=== PATIENT | female | born 1985 ===

== ENCOUNTER 2020-10-17 16:04 | Outpatient (CLI) | payer MEDICAID ==
[2020-10-17 16:41] VITALS: BP 108/71
--- NOTE | 2020-10-17 16:41 | SLEEP CARE CONSULTATION ---
Information from patient questionnaire entered by Namrata Dennis. I have reviewed and concur with the information entered by Namrata Dennis. This document represents the service I personally performed and the decisions made by me, Valery Beavers ARNP. History of Present Illness Service Date and Time: 10/17/2020 1604 Reason for Visit: New patient Chief Complaint: reports: Unrefreshed sleep, Snoring, Excessive daytime sleepiness, Observed pauses in breathing, Fatigue, Frequent awakenings at night Date of Onset: As long as I can remember Usual bedtime: Varies Time it takes to fall asleep: 15 minutes or so, varies Snores at night: Yes Observed to quit breathing while asleep: Yes Sleeps alone due to snoring: No (No spouse) Number of times waking at night: 2-3 Reasons for waking at night: reports: Bathroom, Other (Unknown reason) Toss, Turn, or Twitch while sleeping: Yes Recalls having dreams: Yes Usually gets out of bed at: Varies Feels refreshed in the morning: No Morning headache: Yes (Few hours; 4-5 days a week) Sleepy or fatigued during the day: Yes Ever fallen asleep while driving: No (some drowsy driving but no accidents) Takes day naps: Yes (1-2 days a week) Dreams during day naps: Yes Prior sleep studies: No Additional HPI information: I had the pleasure of seeing ALE PRIDE today regarding the possibility of her having a sleep disorder. Her current complaints are excessive daytime sleepiness, fatigue, frequent night awakenings, observed pauses in breathing, snoring and unrefreshed sleep. Her mother thinks she has apnea. She has heard her stop breathing and snores very loudly. Lately she is waking up with severe headaches. She sometimes has difficulty going to sleep. She wakes up not feeling rested and sometimes she will fall back to sleep. She sometimes will sleep up to 14 hours and still not feel rested. Both of her parents have sleep apnea. - Parasomnia Symptoms Ever been unable to move upon waking from sleep: Yes Walks in sleep: No Talks in sleep: No Ever acted out dreams in sleep: No (once she screamed in her dream) Ever felt weak in the knees when startled or emotional: Yes Bothered by creepy, crawly, restless sensations in legs: No Problems with memory or concentration: Yes (mostly concentration) Subjective Initial [place] Sleepiness Scale score: 12 (in 2020) Past Medical History Past Medical History: reports: Anxiety, Depression, Other (Bipolar) Social History The patient's occupation is disabled. Patient is single and lives in [place]. Have you smoked in the past 12 months: No Alcohol use: Yes Alcohol amount and frequency: 1-2 glasses, not often--1-2 a month Caffeine use: Yes Caffeine amount and frequency: 5-10 a day, 5-10 a day Family History Family history of sleep disordered breathing: Yes Family Hx Sleep Apnea: Mother: Sleep apnea - Treated, Father: Sleep apnea - Treated Allergies and Home Medications Drug allergies reviewed: Yes (NKDA) Home medication list reviewed: Yes Allergy and home medication list: Lamotrigene Lexapro Remeron Risperidone Review of Systems Cardiovascular: denies: high blood pressure Gastrointestinal: reports: heartburn (occasional) Neurological: reports: headaches Psychiatric: reports: anxiety, depression, mood disorder Ear/Nose/Throat: reports: dry mouth/throat. denies: tonsillectomy, wisdom teeth removed Immunologic: denies: allergies to food or environment Physical Exam Blood Pressure: 108/71 Cuff size: wrist Heart Rate: 92 O2 Saturation: 98 Height: 5 ft 7 in Weight: 319 lb Body Mass Index: 49.9 BMI Classification: Morbidly Obese Mouth and throat: narrow oropharynx Hard palate: normal Uvula visualization: 25% Mallampati Class III Tongue: enlarged in size with teeth vazquez on lateral edges Tonsils: 1+ Heart: regular rate and rhythm Lungs: clear bilaterally Impression and Plan 1. Suspected Obstructive Sleep Apnea-Hypopnea Syndrome, as suggested by a history of loud and irregular snoring, observed cessation of breath while asleep, morning headache, frequent awakening during the night, unrefreshed sleep, cognitive impairment, and excessive daytime sleepiness. Narrow oropharynx and obesity are common predisposing factors for obstructive sleep apnea-hypopnea syndrome. I recommend proceeding to polysomnography to confirm the diagnosis and to assess severity. If the patient has significant sleep disordered breathing, a manual CPAP titration study will also be performed to find the optimal treatment pressure. I informed the patient of what the sleep studies involve and after some discussion, obtained agreement to proceed. The pathophysiology of obstructive sleep apnea-hypopnea syndrome was discussed with the patient and health risks of cardiovascular and cerebrovascular disease if not treated. Risks of drowsy driving discussed in detail and patient advised to avoid long distance driving and to lathe puller at the first sign of drowsiness. Patient agreed to plan. * Schedule polysomnography +- manual CPAP titration study and return in 1-2 weeks after the study to discuss result and initiate therapy. * Avoid long distance driving or driving when feeling sleepy. * Avoid alcohol, sedative and muscle relaxant around bedtime. * Attempt to lose weight. * Review instructions provided by trained office staff on how to prepare for the sleep study. * Return for follow-up after sleep study completed. Counseling Topics: Weight loss health impact Visit Type: In Office Time Spent with Patient (minutes): 31 Provider Statement: I spent 100% of the Face to Face Visit with the patient with greater than 50% spent counseling the patient and coordination of care.
== END 2020-10-17 16:05 | disposition home or self-care (01) ==
LOC: SC 16:04
PROVIDERS: ATTEND Nurse Practitioner Family
DX: G47.10 Hypersomnia, unspecified (principal); R06.83 Snoring; R51.9 Headache, unspecified; R06.81 Apnea, not elsewhere classified; G47.8 Other sleep disorders; R41.89 Other symptoms and signs involving cognitive functions and awareness; E66.01 Morbid (severe) obesity due to excess calories; Z68.42 Body mass index [BMI] 45.0-49.9, adult
CPT/HCPCS: 99203; 99212

== ENCOUNTER 2020-11-08 21:28 | Outpatient (CLI) | payer MEDICAID | END 2020-11-08 21:29 | disposition home or self-care (01) | LOC: SC 21:28 | PROVIDERS: ATTEND Nurse Practitioner Family | DX: G47.33 Obstructive sleep apnea (adult) (pediatric) (principal); E66.09 Other obesity due to excess calories; Z68.43 Body mass index [BMI] 50.0-59.9, adult | CPT/HCPCS: 95810 ==

== ENCOUNTER 2020-11-28 16:15 | Outpatient (CLI) | payer MEDICAID ==
--- NOTE | 2020-11-28 16:59 | SLEEP CARE CONSULTATION ---
Information from patient questionnaire entered by Daysi Trinidad. I have reviewed and concur with the information entered by Daysi Trinidad. This document represents the service I personally performed and the decisions made by , Valery Beavers ARNP. History of Present Illness Service Date and Time: 11/28/2020 1615 Initial [place] Sleepiness Scale score: 12 (in 2020) Current [place] Sleepiness Scale score: 13 Additional HPI information: ALE PRIDE returns for follow up and results of the recently performed polysomnography. I explained the pathophysiology behind obstructive sleep apnea. We then spent quite a bit of time discussing different treatment options. For mild obstructive sleep apnea, surgery and oral appliance are alternatives to nasal CPAP therapy but in moderate or severe cases, nasal CPAP is the most effective and reliable treatment. Because apnea is primarily in supine position, then positional management therapy could be effective. Methods discussed such as positioning with pillows, using a T-shirt with tennis balls in the back, and shown commercial products that have a pillow format on back to prevent supine sleep. I reviewed the impact of weight changes on sleep apnea and strongly recommended losing weight. After some discussion, the patient opted to go with the nasal CPAP therapy. Nasal autoCPAP set at 4-15 cmH20 will be ordered with rationale explained. A manual titration study will be ordered if unable to find optimal pressure with office adjustments. I explained how CPAP machine works with sample devices [employer] Dreamstation and [employer] [id number] and what to expect when using the machine. Using CPAP every night in order to get used to it was emphasized. Patient advised to put CPAP mask on before getting into bed so as not to fall asleep without CPAP. To assist acclimation to CPAP use, it could also be used for a short time during day while reading or watching TV. The patient was instructed to call the CPAP supplier to discuss any mechanical problem that may occur. If the mask given is uncomfortable or is difficult to keep on through the night even with adjustment, contact the CPAP supplier as many will replace with another mask style if notified before 30 days. If snoring or perceives is not getting enough air or too much air from the machine, notify this office. [facility] patient education PAP tips reviewed and given to patient. Patient counseled not drink alcohol less than 4 hours before bedtime as it can increase snoring and apnea. Patient was cautioned about risks of drowsy driving until sleepiness symptoms resolve. Sleep Study - Results Type of Sleep Study: Polysomnography Prior sleep studies: No Polysomnography/Home Sleep Study results: IMPRESSION: The quality of the study is good. The patient had normal sleep efficiency. Despite severe sleep fragmentation, the sleep architecture was normal. Respiratory monitoring showed very severe obstructive sleep apnea-hypopnea (AHI = 80.4) associated with frequent arousals, oxyhemoglobin desaturation and moderate hypoxia (delmer oxygen saturation of 66%). Baseline oxygen saturation was normal. The respiratory events occurred independently of sleep stage and body position (supine AHI = 89.8; non-supine = 66.48). Snore was light to loud in intensity. There was no significant periodic leg movement of sleep. Cardiac rhythm was normal sinus rhythm with occasional premature atrial contractions.. No abnormal behavior (parasomnia) observed during the night. Allergies and Home Medications Home medication list reviewed: Yes (no new meds) Review of Systems Review of systems same as previous: Yes (no changes) Physical Exam Heart Rate: 82 O2 Saturation: 98 Height: 5 ft 7 in Weight: 313 lb Body Mass Index: 49.0 BMI Classification: Morbidly Obese Impression and Plan 1. Obstructive Sleep Apnea-Hypopnea Syndrome, very severe, with lowest oxygen saturation of 66%. Obviously this is the cause of the patients symptoms of unrefreshed sleep, and excessive daytime sleepiness. Positive pressure therapy could benefit anxiety, depression and Bipolar mood disorder. The patient will be started on nasal autoCPAP therapy with pressure set at 4-15 cmH2O. Due to the severity of her sleep apnea I will order her CPAP machine urgently to be able to get her treatment started soonest. I will also order the manual titration study to find optimal treatment pressure. Compliance guidelines also reviewed. A copy of compliance guidelines will be given for reference at check out. Because the apnea is more severe supine, I instructed to avoid sleeping supine using pillow positioning until able to start CPAP use. * Nasal auto CPAP therapy, pressure at 4-15 cm H2O. * Titration study * Attempt to lose weight. * Avoid alcohol consumption near bedtime. * Avoid supine sleep until using CPAP. * The patient is again cautioned about driving until sleepiness completely resolves. * Return one month after CPAP obtained. I will assess response to therapy and compliance at that time. Counseling Topics: Weight loss health impact Visit Type: In Office Time Spent with Patient (minutes): 20 Provider Statement: I spent 100% of the Face to Face Visit with the patient with greater than 50% spent counseling the patient and coordination of care.
== END 2020-11-28 16:16 | disposition home or self-care (01) ==
LOC: SC 16:15
PROVIDERS: ATTEND Nurse Practitioner Family
DX: G47.33 Obstructive sleep apnea (adult) (pediatric) (principal); E66.01 Morbid (severe) obesity due to excess calories; Z68.42 Body mass index [BMI] 45.0-49.9, adult
CPT/HCPCS: 99212; 99213

== ENCOUNTER 2021-02-27 14:51 | Outpatient (CLI) | payer MEDICAID ==
[2021-02-27 17:44] LABS: BASOPHILS # (AUTO) 0.1 10^3/uL (0.0-0.1); BASOPHILS % (AUTO) 1.4 %; EOSINOPHILS # (AUTO) 0.2 10^3/uL (0.0-0.7); EOSINOPHILS % (AUTO) 3.7 %; HCT - HEMATOCRIT 37.2 % (37.0-47.0); HGB - HEMOGLOBIN 11.4 g/dL (12.0-16.0); LYMPHOCYTES % (AUTO) 31.4 %; MEAN CORPUSCULAR HEMOGLOBIN 25.7 pg (27.0-31.0); MEAN CORPUSCULAR HGB CONC 30.6 g/dL (32.0-36.0); MEAN CORPUSCULAR VOLUME 83.8 fL (81.0-99.0); MEAN PLATELET VOLUME 10.5 fL (7.9-10.8); MONOCYTES # (AUTO) 0.4 10^3/uL (0.0-1.0); MONOCYTES % (AUTO) 6.1 %; NEUTROPHILS # (AUTO) 3.6 10^3/uL (1.5-6.6); NEUTROPHILS % (AUTO) 57.1 %; PLT - PLATELET COUNT 387 10^3/uL (130-450); RED BLOOD COUNT 4.44 10^6/uL (4.20-5.40); RED CELL DISTRIBUTION WIDTH 13.9 % (12.0-15.0); WHITE BLOOD COUNT 6.2 x10^3/uL (4.8-10.8)
[2021-02-27 18:00] LABS: % IRON SATURATION 8 % (20-50); ALBUMIN 4.2 g/dL (3.2-5.5); ALBUMIN/GLOBULIN RATIO 1.3 (1.0-2.2); ALKALINE PHOSPHATASE 69 IU/L (42-121); ALT ALANINE AMINOTRANSFERASE 24 IU/L (10-60); AST ASPARTATE AMINOTRANSFERASE 18 IU/L (10-42); BILIRUBIN,TOTAL 0.6 mg/dL (0.2-1.0); BUN - BLOOD UREA NITROGEN 14 mg/dL (6-20); CALCIUM 9.1 mg/dL (8.5-10.3); CARBON DIOXIDE - CO2 26 mmol/L (21-32); CHLORIDE 99 mmol/L (101-111); CHOL/HDL RATIO 4.6 (<4.4); CHOLESTEROL 198 mg/dL; CREATININE 0.7 mg/dL (0.4-1.0); GFR - MDRD 96 (>89); GLUCOSE 101 mg/dL (70-100); HDL CHOLESTEROL 43 mg/dL; IRON 34 ug/dL (28-170); LDL CHOLESTEROL,CALCULATED 125 mg/dL; LDL/HDL RATIO 2.9 (<4.4); POTASSIUM 4.1 mmol/L (3.5-5.0); SODIUM 135 mmol/L (135-145); TOTAL IRON BINDING CAPACITY 410 ug/dL (250-450); TOTAL PROTEIN 7.5 g/dL (6.7-8.2); TRANSFERRIN 293 mg/dL (192-382); TRIGLYCERIDES 152 mg/dL; VLDL CHOLESTEROL 30 mg/dL
[2021-02-27 18:14] LABS: THYROID STIMULATING HORMONE 6.64 uIU/mL (0.34-5.60)
[2021-02-27 18:20] LABS: FERRITIN 9.9 ng/mL (11.0-306.8); PROLACTIN 6.44 ng/mL
[2021-02-27 18:21] LABS: HCG,QUALITATIVE BLOOD NEGATIVE
[2021-02-27 18:42] LABS: FOLLICLE STIMULATING HORMONE 5.88 mIU/mL
[2021-02-27 19:32] LABS: FREE T4 (FREE THYROXINE) 0.76 ng/dL (0.58-1.64)
== END 2021-02-27 14:52 | disposition home or self-care (01) ==
LOC: LAB.N 14:51
PROVIDERS: ATTEND Registered Nurse
DX: N92.6 Irregular menstruation, unspecified (principal); Z83.3 Family history of diabetes mellitus; E66.01 Morbid (severe) obesity due to excess calories; L68.0 Hirsutism; Z86.2 Personal history of diseases of the blood and blood-forming organs and certain disorders involving the immune mechanism
CPT/HCPCS: 36415; 80053; 80061; 82627; 82728; 83001; 83540; 83721; 84144; 84146; 84439; 84443; 84466; 84703; 85025

== ENCOUNTER 2021-02-27 15:19 | Outpatient (CLI) | payer MEDICAID ==
--- NOTE | 2021-02-27 15:44 | SLEEP CARE CONSULTATION ---
Information from patient questionnaire entered by Namrata Dennis. I have reviewed and concur with the information entered by Namrata Dennis. This document represents the service I personally performed and the decisions made by , Valery Beavers ARNP. History of Present Illness Service Date and Time: 02/27/2021 1519 Previous diagnosis: Very Severe, Obstructive Sleep Apnea-Hypopnea Syndrome AHI: 80.4 Reason for follow up: first compliance (Set up 12/20) Equipment type: CPAP Equipment obtained from: Other ([facility]; has not gotten new supplies) Mask style: Nasal Backup mask available: No (will keep old mask when replaced) Prior sleep studies: No Year and Where: 2020 [facility] Type of Sleep Study: Polysomnography HPI additional information: ALE PRIDE was diagnosed to have very severe, AHI 80.4, obstructive sleep apnea- hypopnea syndrome and returned today for CPAP therapy first compliance follow- up. CPAP Compliance Data - Data Reviewed with Patient Average duration of nightly device use: 6 h 46 min Compliance rate %: 28 Current pressure setting (cmH2O): 4-15 (median 9.3, mild 12.4, max 13.5) Average residual AHI: 3.4 Central apnea: 1.0 Obstructive apnea: 1.1 Subjective Missed days of use due to: reports: other (Broken hose) Patient concerns: reports: other (hose was bitten by her cat). denies: aerophagia, mask discomfort, air blowing in eyes, mask leak noise, condensation in mask/hose, nasal congestion, dry mouth, nose, throat, epistaxis Observed to snore while using device: No Current pressure setting perceived as: comfortable On therapy, patient: reports: sleeping better, awakening more refreshed, being more awake and alert during the day, more rested overall. denies: drowsiness while driving Initial [place] Sleepiness Scale score: 12 (in 2020) Current [place] Sleepiness Scale score: 12 Allergies and Home Medications Home medication list reviewed: Yes (no changes) Review of Systems Review of systems same as previous: Yes (no changes) Physical Exam Heart Rate: 77 O2 Saturation: 98 Height: 5 ft 7 in Weight: 289 lb Weight change since last visit: 24 lb loss Body Mass Index: 45.2 BMI Classification: Morbidly Obese Impression and Plan 1. Obstructive Sleep Apnea-Hypopnea Syndrome, very severe, with poor treatment compliance and good apnea control. On CPAP therapy, the patient has better sleep quality and is more rested overall. Patient's compliance reduced because her because her cat made holes in her only tubing and she has not been able to use her device without it. She has also been without a phone until yesterday so she has not been able to call to get a replacement hose. Patient was encouraged to call them now to get some supplies on the way as she does need a new mask as well as the tubing. The patient likes her current pressure setting and would like to keep it. Patient advised to contact me if pressure becomes is uncomfortable so that it can be adjusted. Goals for apnea control discussed. Patient has lost weight. Obesity increases the risk of apnea, CPAP pressure requirements and overall health risks especially cardiovascular and diabetes. Thus patient is advised to continue to lose weight. Weight loss can be done with reducing portion size, reducing refined foods and balancing content with vegetables, fruit and whole grain foods. The patient's CPAP pressure range sh ould accommodate some weight loss. Symptoms to report for additional pressure adjustment discussed. Patient's apnea severity and rationale for treatment to reduce apnea, improve sleep quality and reduce cardiovascular and cerebrovascular events was reviewed. I also reviewed the benefit of consistent device use of CPAP for depression/anxiety. * Continue auto CPAP pressure at 4-15 cmH2O * Notify me if snoring with mask or feeling that the pressure is too much or too little * Continue to try to lose weight * Call this office if any problems using CPAP * Return for follow up in 1-2 months, or sooner if concerns arise Counseling Topics: Spare mask, Weight loss health impact Visit Type: In Office Time Spent with Patient (minutes): 17 Provider Statement: I spent 100% of the Face to Face Visit with the patient with greater than 50% spent counseling the patient and coordination of care.
== END 2021-02-27 15:20 | disposition home or self-care (01) ==
LOC: SC 15:19
PROVIDERS: ATTEND Nurse Practitioner Family
DX: G47.33 Obstructive sleep apnea (adult) (pediatric) (principal); E66.9 Obesity, unspecified; Z68.42 Body mass index [BMI] 45.0-49.9, adult
CPT/HCPCS: 99212

== ENCOUNTER 2021-05-21 15:34 | Outpatient (CLI) | payer MEDICAID ==
[2021-05-21 16:35] VITALS: BP 133/78
--- NOTE | 2021-05-21 16:35 | SLEEP CARE CONSULTATION ---
Information from patient questionnaire entered by Daryn Vieira MA. I have reviewed and concur with the information entered by Daryn Vieira MA. This document represents the service I personally performed and the decisions made by , Valery Beavers ARNP. History of Present Illness Service Date and Time: 05/21/2021 1534 Previous diagnosis: Very Severe, Obstructive Sleep Apnea-Hypopnea Syndrome AHI: 80.4 Reason for follow up: three month Equipment type: CPAP Equipment obtained from: Other ([facility]; getting supplies) Mask style: Full face Backup mask available: No (will need to keep old mask when replaced) Last cushion change: couple days Prior sleep studies: No Year and Where: 2020 [facility] Type of Sleep Study: Polysomnography HPI additional information: ALE PRIDE was diagnosed to have very severe, AHI 80.4, obstructive sleep apnea- hypopnea syndrome and returned today for CPAP therapy three month follow-up. Sleep Study - Results Type of Sleep Study: Polysomnography Prior sleep studies: No Year and Where: 2020 [facility] CPAP Compliance Data - Data Reviewed with Patient Average duration of nightly device use: 9 hours 43 minutes Compliance rate %: 3 Current pressure setting (cmH2O): 4-15 Average residual AHI: 2.3 Central apnea: .4 Obstructive apnea: .5 Subjective Missed days of use due to: reports: other (bad depression and insomnia; broken hose) Patient concerns: denies: aerophagia, mask discomfort, air blowing in eyes, mask leak noise, condensation in mask/hose, nasal congestion, dry mouth, nose, throat, epistaxis, other Observed to snore while using device: No Current pressure setting perceived as: comfortable On therapy, patient: reports: sleeping better, awakening more refreshed, being more awake and alert during the day, more rested overall. denies: drowsiness while driving Initial [place] Sleepiness Scale score: 12 (in 2020) Current [place] Sleepiness Scale score: 12 (in 2020) Allergies and Home Medications Home medication list reviewed: Yes (started thyroid meds, control) Review of Systems Review of systems same as previous: No (hypothyroidism, bilateral carpal tunnel) Physical Exam Vital signs obtained and entered by: Ade VIEIRA CMA [facility] Blood Pressure: 133/78 Cuff size: wrist Heart Rate: 88 O2 Saturation: 99 Height: 5 ft 7 in Weight: 279 lb Body Mass Index: 43.7 BMI Classification: Morbidly Obese Impression and Plan 1. Obstructive Sleep Apnea-Hypopnea Syndrome, very severe, with poor treatment compliance and good apnea control. On CPAP therapy, the patient has better sleep quality and is more rested overall. Patient has had problems with depression and insomnia which has affected her compliance. She just got a replacement hose for the one her cat bit on before causing it to leak. She states she does feel better when she uses it and she wants to use it regularly. She has had times when she fell asleep while watching TV. Compliance guidelines reviewed for insurance coverage. Patient was counseled on the difference between meeting compliance and optimal use of CPAP. Optimal use of CPAP is use of CPAP with all sleep to obtain maximum benefit of treatment. Patient is encouraged to use CPAP with all sleep. To prevent falling asleep without CPAP, patient advised to set a bedtime alarm on their phone for use while watching TV on couch or in bed. Patient was encouraged to lose weight for their overall health and to reduce apneas. Patient's apnea severity and rationale for treatment to reduce apnea, improve sleep quality and reduce cardiovascular and cerebrovascular events was reviewed. I also reviewed the benefit of consistent device use of CPAP for depression/anxiety. * Continue auto CPAP pressure at 4-15 cmH2O * Notify me if snoring with mask or feeling that the pressure is too much or too little * Attempt to lose weight * Call this office if any problems using CPAP * Return for follow up in 1-2 months, or sooner if concerns arise Counseling Topics: Spare mask, Weight loss health impact Visit Type: In Office Time Spent with Patient (minutes): 20 Provider Statement: I spent 100% of the Face to Face Visit with the patient with greater than 50% spent counseling the patient and coordination of care.
== END 2021-05-21 15:35 | disposition home or self-care (01) ==
LOC: SC 15:34
PROVIDERS: ATTEND Nurse Practitioner Family
DX: G47.33 Obstructive sleep apnea (adult) (pediatric) (principal); E66.01 Morbid (severe) obesity due to excess calories; Z68.41 Body mass index [BMI] 40.0-44.9, adult
CPT/HCPCS: 99212

== ENCOUNTER 2021-06-25 10:32 | Outpatient (CLI) | payer MEDICAID | END 2021-06-25 10:33 | disposition home or self-care (01) | LOC: LAB.N 10:32 | PROVIDERS: ATTEND Registered Nurse | DX: Z53.9 Procedure and treatment not carried out, unspecified reason (principal) ==

== ENCOUNTER 2021-06-25 10:43 | Outpatient (CLI) | payer MEDICAID ==
--- NOTE | 2021-06-25 13:20 | XRAY Report ---
PROCEDURE: Forearm BILAT INDICATIONS: BILATERAL CARPAL TUNNEL SYNDROME TECHNIQUE: 2 views of the right forearm and left forearm were acquired. COMPARISON: None FINDINGS: Bones: No fractures or dislocations. No suspicious bony lesions. Soft tissues: No suspicious soft tissue calcifications or masses. IMPRESSION: No osseous lesion. If there are persistent symptoms or continued clinical concern for pathology, then repeat plain film radiographs (7-10 days) or advanced imaging (CT, MR, bone scan) should be consider ed for further evaluation. Reviewed by: Marla Carey MD, PhD on 06/25/2021 1:19 PM PST Approved by: Marla Carey MD, PhD on 06/25/2021 1:19 PM PST Station ID: [id number]
== END 2021-06-25 23:59 | disposition home or self-care (01) ==
LOC: DI.N 10:43
PROVIDERS: ATTEND Registered Nurse
DX: G56.03 Carpal tunnel syndrome, bilateral upper limbs (principal)

== ENCOUNTER 2021-07-24 15:37 | Outpatient (CLI) | payer MEDICAID ==
[2021-07-24 16:33] VITALS: BP 132/86
--- NOTE | 2021-07-24 16:33 | SLEEP CARE CONSULTATION ---
Information from patient questionnaire entered by Daryn Vieira MA. I have reviewed and concur with the information entered by Daryn Vieira MA. This document represents the service I personally performed and the decisions made by , Valery Beavers ARNP. History of Present Illness Service Date and Time: 07/24/2021 1537 Previous diagnosis: Very Severe, Obstructive Sleep Apnea-Hypopnea Syndrome AHI: 80.4 Reason for follow up: other (2 MONTH F/U) Equipment type: CPAP Equipment obtained from: Other ([facility]; getting supplies) Mask style: Nasal Backup mask available: No (will need to keep old mask when replaced) Last cushion change: 1-2 months Prior sleep studies: No Year and Where: 2020 [facility] Type of Sleep Study: Polysomnography HPI additional information: ALE PRIDE was diagnosed to have very severe, AHI 80.4, obstructive sleep apnea- hypopnea syndrome and returned today for CPAP therapy two month follow-up. Sleep Study - Results Type of Sleep Study: Polysomnography Prior sleep studies: No Year and Where: 2020 [facility] CPAP Compliance Data - Data Reviewed with Patient Average duration of nightly device use: 5 hours 42 mins Compliance rate %: 8 (60 days) Current pressure setting (cmH2O): 4-15 Average residual AHI: 2.3 Central apnea: 0.4 Obstructive apnea: 0.7 Subjective Missed days of use due to: reports: other (MACHINE IS NOT WORKING PROPERTY, NOT USING ANY OF THE WATER. ) Patient concerns: reports: air blowing in eyes (when mask slips off nose), dry mouth, nose, throat, other. denies: aerophagia, mask discomfort, mask leak noise, condensation in mask/hose, nasal congestion, epistaxis Observed to snore while using device: No Current pressure setting perceived as: comfortable On therapy, patient: reports: sleeping better, awakening more refreshed, being more awake and alert during the day, more rested overall. denies: drowsiness while driving (doesn't have a car) Initial [place] Sleepiness Scale score: 12 (in 2020) Current [place] Sleepiness Scale score: 15 (2021) Allergies and Home Medications Known drug allergies: No Drug allergies reviewed: Yes Home medication list reviewed: Yes (Latuda) Review of Systems Review of systems same as previous: No (Bipolar, Borderline Personality Disorder, Anxiety) Physical Exam Vital signs obtained and entered by: Ade VIEIRA CMA AAMA Blood Pressure: 132/86 (LEFT, PULSE 101, RESPN 18) Cuff size: wrist Heart Rate: 102 O2 Saturation: 98 (N95 MASK) Height: 5 ft 7 in Weight: 283 lb Body Mass Index: 44.3 BMI Classification: Morbidly Obese Impression and Plan 1. Obstructive Sleep Apnea-Hypopnea Syndrome, very severe, with poor treatment compliance and good apnea control. On CPAP therapy, the patient has better sleep quality and is more rested overall. Patient states she has been having difficulty using her CPAP because the humidifier is not working. She states w hen she gets up in the morning the water level has not moved. She is waking up with a very dry mouth. She states sometimes she will get a little bit of air leaking into her eyes when the mask slips down from her nose. She does not want to try a different mask because she feels this one is the most comfortable that she has had so far. Patient's apnea severity and rationale for treatment to reduce apnea, improve sleep quality and reduce cardiovascular and cerebrovascular events was reviewed. I also reviewed the benefit of consistent device use of CPAP for depression/anxiety. 2. Obesity, unspecified. Patient has gained weight. Currently patients BMI is 44.3. Obesity increases the risk of apnea, CPAP pressure requirements and overall health risks especially cardiovascular and diabetes. Thus patient is advised to lose weight. Weight loss can be done with reducing portion size, reducing refined foods and balancing content with vegetables, fruit and whole grain foods. In addition, patient encouraged to get regular exercise. The patient's CPAP pressure range should accommodate some weight loss. Symptoms to report for additional pressure adjustment discussed. * Continue CPAP pressure at 6-10 cmH2O * Service machine, humidifier element may not be working * Notify me if snoring with mask or feeling that the pressure is too much or too little * Attempt to lose weight * Call this office if any problems using CPAP * Return for follow up in 1-2 months, or sooner if concerns arise Counseling Topics: Spare mask, Weight loss health impact Visit Type: In Office Time Spent with Patient (minutes): 21 Provider Statement: I spent 100% of the Face to Face Visit with the patient with greater than 50% spent counseling the patient and coordination of care.
== END 2021-07-24 15:38 | disposition home or self-care (01) ==
LOC: SC 15:37
PROVIDERS: ATTEND Nurse Practitioner Family
DX: G47.33 Obstructive sleep apnea (adult) (pediatric) (principal); E66.01 Morbid (severe) obesity due to excess calories; Z68.41 Body mass index [BMI] 40.0-44.9, adult
CPT/HCPCS: 99212; 99213

== ENCOUNTER 2021-10-08 16:03 | Outpatient (CLI) | payer MEDICAID ==
[2021-10-08 16:31] VITALS: BP 125/78
--- NOTE | 2021-10-08 16:31 | SLEEP CARE CONSULTATION ---
Information from patient questionnaire entered by Daryn Wood MA. I have reviewed and concur with the information entered by Daryn Wood MA. This document represents the service I personally performed and the decisions made by , Valery Beavers ARNP. History of Present Illness Service Date and Time: 10/08/2021 1603 Previous diagnosis: Very Severe, Obstructive Sleep Apnea-Hypopnea Syndrome AHI: 80.4 Reason for follow up: three month (RESMED, ) Equipment type: CPAP Equipment obtained from: Other ([facility]; getting supplies) Mask style: Nasal Backup mask available: No (will need to keep old mask when replaced) Last cushion change: over 3 months Prior sleep studies: No Year and Where: 2020 [facility] [place] Type of Sleep Study: Polysomnography HPI additional information: ALE PRIDE was diagnosed to have very severe, AHI 80.4, obstructive sleep apnea- hypopnea syndrome and returned todaywith partner for CPAP therapy three month follow-up. Sleep Study - Results Type of Sleep Study: Polysomnography Prior sleep studies: No Year and Where: 2020 [facility] [place] CPAP Compliance Data - Data Reviewed with Patient Average duration of nightly device use: 3 hours 53 minutes Compliance rate %: 4 Current pressure setting (cmH2O): 4-15 Average residual AHI: 3.0 Subjective Missed days of use due to: reports: other (got lost in room; then found and is starting to use again) Patient concerns: reports: mask discomfort (mask cushion poppint out of headgear hodges). denies: aerophagia, air blowing in eyes, mask leak noise, condensation in mask/hose, nasal congestion, dry mouth, nose, throat, epistaxis, other Observed to snore while using device: No Current pressure setting perceived as: comfortable On therapy, patient: reports: sleeping better, awakening more refreshed, being more awake and alert during the day, more rested overall. denies: drowsiness while driving Initial [place] Sleepiness Scale score: 12 (in 2020) Current [place] Sleepiness Scale score: 10 (09/2021) Allergies and Home Medications Home medication list reviewed: Yes (no changes) Review of Systems Review of systems same as previous: Yes (no changes) Physical Exam Vital signs obtained and entered by: Ade WOOD CMA [facility] Blood Pressure: 125/78 (left, resp 16, pulse 87,) Cuff size: wrist Heart Rate: 82 O2 Saturation: 96 (n95) Height: 5 ft 7 in Weight: 287 lb (clothes) Weight change since last visit: losing weight , on thyroid meds, eating better; 4 lb gain since last visit Body Mass Index: 44.9 BMI Classification: Morbidly Obese Impression and Plan 1. Obstructive Sleep Apnea-Hypopnea Syndrome, very severe, with poor treatment compliance and good apnea control. On CPAP therapy, the patient has better sleep quality and is more rested overall. She states she lost the machine in her room when she was moving things around. She found it last month and started using it again. She needs a mask cushion replacement because the one she has keeps popping out of her headgear. I encouraged her to call her DME to get more supplies. She voiced understanding. Compliance guidelines reviewed for insurance coverage. Patient was counseled on the difference between meeting compliance and optimal use of CPAP. Optimal use of CPAP is use of CPAP with all sleep to obtain maximum benefit of treatment. Patient is encouraged to use CPAP with all sleep. She voiced understanding. Patient's apnea severity and rationale for treatment to reduce apnea, improve sleep quality and reduce cardiovascular and cerebrovascular events was reviewed. I also reviewed the benefit of consistent device use of CPAP for depression/anxiety. 2. Obesity, unspecified. Patient started medication for her thyroid and feels she is losing weight. Currently patients BMI is 44.9. Obesity increases the risk of apnea, CPAP pressure requirements and overall health risks especially cardiovascular and diabetes. Thus patient is advised to continue to try to lose weight. Weight loss can be done with reducing portion size, reducing refined foods and balancing content with vegetables, fruit and whole grain foods. In addition, patient encouraged to get regular exercise. The patient's CPAP pressure range should accommodate some weight loss. Symptoms to report for additional pressure adjustment discussed. * Continue auto CPAP pressure at 4-15 cmH2O * Notify me if snoring with mask or feeling that the pressure is too much or too little * Continue to try to lose weight * Call this office if any problems using CPAP * Return for follow up in 1-2 months, or sooner if concerns arise Counseling Topics: Spare mask, Weight loss health impact Visit Type: In Office Time Spent with Patient (minutes): 21 Provider Statement: I spent 100% of the Face to Face Visit with the patient with greater than 50% spent counseling the patient and coordination of care.
== END 2021-10-08 16:04 | disposition home or self-care (01) ==
LOC: SC 16:03
PROVIDERS: ATTEND Nurse Practitioner Family
DX: G47.33 Obstructive sleep apnea (adult) (pediatric) (principal); E66.01 Morbid (severe) obesity due to excess calories; Z68.41 Body mass index [BMI] 40.0-44.9, adult
CPT/HCPCS: 99212

== ENCOUNTER 2021-12-30 14:42 | Outpatient (CLI) | payer MEDICAID | END 2021-12-30 14:43 | disposition home or self-care (01) | LOC: LAB.N 14:42 | PROVIDERS: ATTEND Registered Nurse | DX: Z79.899 Other long term (current) drug therapy (principal) | CPT/HCPCS: 36415; 80175 ==

== ENCOUNTER 2022-05-06 09:01 | Outpatient (CLI) | payer MEDICARE, MEDICAID | END 2022-05-06 09:02 | disposition home or self-care (01) | LOC: LAB.N 09:01 | PROVIDERS: ATTEND Nurse Practitioner Family | DX: E03.9 Hypothyroidism, unspecified (principal); E66.01 Morbid (severe) obesity due to excess calories; E88.81 Metabolic syndrome and other insulin resistance; Z79.899 Other long term (current) drug therapy | CPT/HCPCS: 36415; 80053; 80061; 83036; 83721; 84443; 85025 ==

== ENCOUNTER 2022-05-08 09:08 | Outpatient (CLI) | payer MEDICARE, MEDICAID ==
[2022-05-08 09:26] LABS: BASOPHILS # (AUTO) 0.1 10^3/uL (0.0-0.1); BASOPHILS % (AUTO) 0.9 %; EOSINOPHILS # (AUTO) 0.2 10^3/uL (0.0-0.7); EOSINOPHILS % (AUTO) 2.4 %; HCT - HEMATOCRIT 36.2 % (37.0-47.0); HGB - HEMOGLOBIN 10.6 g/dL (12.0-16.0); LYMPHOCYTES # (AUTO) 1.7 10^3/uL (1.5-3.5); LYMPHOCYTES % (AUTO) 21.3 %; MEAN CORPUSCULAR HEMOGLOBIN 22.3 pg (27.0-31.0); MEAN CORPUSCULAR HGB CONC 29.3 g/dL (32.0-36.0); MEAN CORPUSCULAR VOLUME 76.2 fL (81.0-99.0); MONOCYTES # (AUTO) 0.4 10^3/uL (0.0-1.0); MONOCYTES % (AUTO) 4.7 %; NEUTROPHILS # (AUTO) 5.6 10^3/uL (1.5-6.6); NEUTROPHILS % (AUTO) 70.3 %; PLT - PLATELET COUNT 472 10^3/uL (130-450); RED BLOOD COUNT 4.75 10^6/uL (4.20-5.40); RED CELL DISTRIBUTION WIDTH 16.1 % (12.0-15.0)
[2022-05-08 09:44] LABS: ALBUMIN 3.9 g/dL (3.2-5.5); ALBUMIN/GLOBULIN RATIO 1.1 (1.0-2.2); ALKALINE PHOSPHATASE 64 IU/L (42-121); ALT ALANINE AMINOTRANSFERASE 34 IU/L (10-60); AST ASPARTATE AMINOTRANSFERASE 48 IU/L (10-42); BILIRUBIN,TOTAL 0.4 mg/dL (0.2-1.0); BUN - BLOOD UREA NITROGEN 8 mg/dL (6-20); CALCIUM 9.4 mg/dL (8.5-10.3); CARBON DIOXIDE - CO2 27 mmol/L (21-32); CHLORIDE 99 mmol/L (101-111); CHOL/HDL RATIO 5.9 (<4.4); CHOLESTEROL 265 mg/dL; CREATININE 0.9 mg/dL (0.4-1.0); GFR - MDRD 72 (>89); GLUCOSE 127 mg/dL (70-100); HDL CHOLESTEROL 45 mg/dL; LDL CHOLESTEROL,CALCULATED 160 mg/dL; LDL/HDL RATIO 3.6 (<4.4); POTASSIUM 3.6 mmol/L (3.5-5.0); SODIUM 137 mmol/L (135-145); TOTAL PROTEIN 7.4 g/dL (6.7-8.2); TRIGLYCERIDES 299 mg/dL; VLDL CHOLESTEROL 60 mg/dL
[2022-05-08 09:55] LABS: THYROID STIMULATING HORMONE 8.3 uIU/mL (0.34-5.60)
[2022-05-08 11:53] LABS: ESTIMATED AVERAGE GLUCOSE 131 mg/dL (70-100); HEMOGLOBIN A1c% 6.2 % (4.27-6.07)
[2022-05-08 11:59] LABS: FREE T4 (FREE THYROXINE) 0.67 ng/dL (0.58-1.64)
== END 2022-05-08 09:09 | disposition home or self-care (01) ==
LOC: LAB 09:08
PROVIDERS: ATTEND Nurse Practitioner Family
DX: E03.9 Hypothyroidism, unspecified (principal); E88.1 Lipodystrophy, not elsewhere classified; E66.01 Morbid (severe) obesity due to excess calories; Z79.899 Other long term (current) drug therapy
CPT/HCPCS: 36415; 80053; 80061; 83036; 83721; 84439; 84443; 85025

== ENCOUNTER 2022-08-06 09:45 | Outpatient (CLI) | payer MEDICARE, MEDICAID ==
[2022-08-06 12:10] LABS: BASOPHILS # (AUTO) 0.1 10^3/uL (0.0-0.1); BASOPHILS % (AUTO) 0.9 %; EOSINOPHILS # (AUTO) 0.2 10^3/uL (0.0-0.7); EOSINOPHILS % (AUTO) 1.6 %; HCT - HEMATOCRIT 35.4 % (37.0-47.0); HGB - HEMOGLOBIN 10.6 g/dL (12.0-16.0); LYMPHOCYTES # (AUTO) 2.4 10^3/uL (1.5-3.5); LYMPHOCYTES % (AUTO) 26.6 %; MEAN CORPUSCULAR HEMOGLOBIN 22.8 pg (27.0-31.0); MEAN CORPUSCULAR HGB CONC 29.9 g/dL (32.0-36.0); MEAN CORPUSCULAR VOLUME 76.3 fL (81.0-99.0); MEAN PLATELET VOLUME 10.5 fL (7.9-10.8); MONOCYTES # (AUTO) 0.5 10^3/uL (0.0-1.0); MONOCYTES % (AUTO) 5.7 %; NEUTROPHILS # (AUTO) 5.9 10^3/uL (1.5-6.6); NEUTROPHILS % (AUTO) 64.9 %; PLT - PLATELET COUNT 473 10^3/uL (130-450); RED BLOOD COUNT 4.64 10^6/uL (4.20-5.40); RED CELL DISTRIBUTION WIDTH 17.2 % (12.0-15.0); WHITE BLOOD COUNT 9.1 x10^3/uL (4.8-10.8)
[2022-08-06 12:34] LABS: % IRON SATURATION 6 % (20-50); IRON 27 ug/dL (28-170); TOTAL IRON BINDING CAPACITY 458 ug/dL (250-450); TRANSFERRIN 327 mg/dL (192-382)
[2022-08-06 12:39] LABS: THYROID STIMULATING HORMONE 6.85 uIU/mL (0.34-5.60)
[2022-08-06 12:43] LABS: FERRITIN 7.7 ng/mL (11.0-306.8)
[2022-08-06 13:09] LABS: FREE T4 (FREE THYROXINE) 0.78 ng/dL (0.58-1.64)
[2022-08-06 20:39] LABS: ESTIMATED AVERAGE GLUCOSE 108 mg/dL (70-100); HEMOGLOBIN A1c% 5.4 % (4.27-6.07)
== END 2022-08-06 09:46 | disposition home or self-care (01) ==
LOC: LAB.N 09:45
PROVIDERS: ATTEND Nurse Practitioner Family
DX: E11.9 Type 2 diabetes mellitus without complications (principal); E03.9 Hypothyroidism, unspecified; D50.0 Iron deficiency anemia secondary to blood loss (chronic)
CPT/HCPCS: 36415; 82728; 83036; 83540; 84439; 84443; 84466; 85025

== ENCOUNTER 2023-04-03 01:07 | Emergency (ER) | payer MEDICARE, MEDICAID ==
[2023-04-03 01:22] VITALS: O2SAT 98
[2023-04-03 01:26] LABS: BASOPHILS # (AUTO) 0.1 10^3/uL (0.0-0.1); EOSINOPHILS # (AUTO) 0.5 10^3/uL (0.0-0.7); EOSINOPHILS % (AUTO) 5.1 %; HCT - HEMATOCRIT 36.3 % (37.0-47.0); HGB - HEMOGLOBIN 11.5 g/dL (12.0-16.0); LYMPHOCYTES # (AUTO) 1.5 10^3/uL (1.5-3.5); LYMPHOCYTES % (AUTO) 16.9 %; MEAN CORPUSCULAR HEMOGLOBIN 26.1 pg (27.0-31.0); MEAN CORPUSCULAR HGB CONC 31.7 g/dL (32.0-36.0); MEAN CORPUSCULAR VOLUME 82.3 fL (81.0-99.0); MEAN PLATELET VOLUME 9.9 fL (7.9-10.8); MONOCYTES # (AUTO) 0.4 10^3/uL (0.0-1.0); MONOCYTES % (AUTO) 4.3 %; NEUTROPHILS # (AUTO) 6.5 10^3/uL (1.5-6.6); NEUTROPHILS % (AUTO) 72.4 %; PLT - PLATELET COUNT 358 10^3/uL (130-450); RED BLOOD COUNT 4.41 10^6/uL (4.20-5.40); WHITE BLOOD COUNT 8.9 x10^3/uL (4.8-10.8)
[2023-04-03 01:27] LABS: BILIRUBIN,URINE NEGATIVE (NEGATIVE); GLUCOSE, URINE (UA) NEGATIVE (NEGATIVE); KETONES,URINE (UA) TRACE mg/dL (NEGATIVE); LEUKOCYTE ESTERASE, URINE SMALL (NEGATIVE); NITRITE,URINE NEGATIVE (NEGATIVE); OCCULT BLOOD,URINE NEGATIVE (NEGATIVE); PH,URINE 6.5 PH (5.0-7.5); PROTEIN,URINE TRACE mg/dL (NEGATIVE); UROBILINOGEN,URINE 0.2 (NORMAL) E.U./dL (NORMAL)
[2023-04-03] MEDS ORDERED: SODIUM CHLORIDE 0.9% 1,000 ML IV STA (01:28)
[2023-04-03] MEDS ORDERED: diphenhydrAMINE INJ 50 MG/ML VIAL IVP STA (01:28)
[2023-04-03] MEDS ORDERED: KETOROLAC 15 MG/ML VIAL IVP STA (01:28)
[2023-04-03] MEDS ORDERED: METOCLOPRAMIDE 10 MG/2 ML VIAL IVP STA (01:29)
[2023-04-03 01:30] LABS: CLARITY,URINE CLEAR (CLEAR)
--- NOTE | 2023-04-03 01:31 | ED Physician Documentation ---
History of Present Illness - Stated complaint Stated Complaint: VOMITING - Chief complaint Chief Complaint: Abd Pain - History obtained from History obtained from: Patient - Additonal information Additional information: 37-year-old woman with history of PCOS, hypothyroidism, mental health issues on Lamictal and SSRI, presents with migraine headache today with nonbloody nonbilious nausea and vomiting x8. Patient has had episodes like this frequently in the past about once a month and has not seen a neurologist but has talked with her primary care provider about it. Denies diarrhea, neck pain, a bdominal pain, urinary symptoms, back pain or neurological deficit. Denies photophobia. Headache is bilateral frontal, gradual onset, moderate to severe in intensity. PD PAST MEDICAL HISTORY - Past Medical History Past Medical History: Yes Cardiovascular: Hypertension, High cholesterol Endocrine/Autoimmune: HyPOthyroidism Psych: Depression, Anxiety, Bipolar disorder - Past Surgical History Past Surgical History: No - Present Medications Home Medications: Ambulatory Orders Medication Instructions Recorded Confirmed Escitalopram Oxalate 20 mg PO DAILY 07/16/22 07/16/22 Iron Ps Complex/B12/Folic Acid 1 each PO DAILY 07/16/22 07/16/22 [Ferrex 150 Forte Capsule] Levothyroxine [Synthroid] 88 mcg PO QDAC 07/16/22 07/16/22 Norgestimate-Ethinyl Estradiol 1 each PO DAILY 07/16/22 07/16/22 [Sprintec 28 Day Tablet] lamoTRIgine [Lamictal] 200 mg PO BID 07/16/22 07/16/22 metFORMIN [Glucophage] 500 mg PO BIDWM 07/16/22 07/16/22 - Allergies Allergies/Adverse Reactions: Allergies Allergy/AdvReac Type Severity Reaction Status Date / Time No Known Drug Allergies Allergy Verified 04/03/23 01:18 - Social History Does the pt smoke?: Yes Smoking Status: Current every day smoker Does the pt drink ETOH?: No Does the pt have substance abuse?: No - Immunizations Immunizations are current?: Yes - POLST Patient has POLST: No PD ED PE NORMAL - Vitals Vital signs reviewed: Yes - General General: Alert and oriented X 3, No acute distress, Well developed/nourished, Other (Large body habitus) - HEENT HEENT: Atraumatic, PERRL, EOMI - Neck Neck: Supple, no meningeal sign - Cardiac Cardiac: RRR - Respiratory Respiratory: No respiratory distress, Clear bilaterally - Abdomen Abdomen: Non tender, Non distended - Derm Derm: Normal color, Warm and dry - Neuro Neuro: Alert and oriented X 3, table games dealer 2-12 intact, No motor deficit, No sensory deficit, Normal speech, Other (Normal cerebellar testing) Eye Opening: Spontaneous Motor: Obeys Commands Verbal: Oriented GCS Score: 15 - Psych Psych: Normal mood, Normal affect Results - Vitals Vitals: Vital Signs - 24 hr 04/03/23 01:16 Temperature 36.7 C Heart Rate 74 Respiratory 18 Rate Blood Pressure 168/139 H O2 Saturation 98 Oxygen O2 Source Room air - Labs Labs: Laboratory Tests 04/03/23 04/03/23 04/03/23 01:11 01:20 01:20 WBC 8.9 RBC 4.41 Hgb 11.5 L Hct 36.3 L MCV 82.3 MCH 26.1 L MCHC 31.7 L RDW 14.0 Plt Count 358 MPV 9.9 Neut # (Auto) 6.5 Lymph # (Auto) 1.5 Wilson # (Auto) 0.4 Eos # (Auto) 0.5 Baso # (Auto) 0.1 Absolute Nucleated RBC 0.00 Nucleated RBC % 0.0 Sodium 135 Potassium 4.3 Chloride 99 L Carbon Dioxide 27 Anion Gap 9.0 BUN 8 Creatinine 0.7 Estimated GFR (MDRD) 95 Glucose 104 Calcium 9.3 Total Bilirubin 0.4 AST 13 ALT 12 Alkaline Phosphatase 66 Total Protein 7.6 Albumin 4.5 Globulin 3.1 Albumin/Globulin Ratio 1.5 Lipase 14 Beta HCG, Quant Urine Color YELLOW Urine Clarity CLEAR Urine pH 6.5 Ur Specific [place] 1.025 Urine Protein TRACE Urine Glucose (UA) NEGATIVE Urine Ketones TRACE Urine Occult Blood NEGATIVE Urine Nitrite NEGATIVE Urine Bilirubin NEGATIVE Urine Urobilinogen 0.2 (NORMAL) Ur Leukocyte Esterase SMALL H Urine RBC 0-5 Urine WBC 6-10 H Ur Squamous Epith Cells MOD Squamous H Urine Bacteria Few Urine Mucus Moderate Strands Ur Microscopic Review INDICATED Urine Culture Comments NOT INDICATED 04/03/23 01:20 WBC RBC Hgb Hct MCV MCH MCHC RDW Plt Count MPV Neut # (Auto) Lymph # (Auto) Wilson # (Auto) Eos # (Auto) Baso # (Auto) Absolute Nucleated RBC Nucleated RBC % Sodium Potassium Chloride Carbon Dioxide Anion Gap BUN Creatinine Estimated GFR (MDRD) Glucose Calcium Total Bilirubin AST ALT Alkaline Phosphatase Total Protein Albumin Globulin Albumin/Globulin Ratio Lipase Beta HCG, Quant < 0.6 Urine Color Urine Clarity Urine pH Ur Specific [place] Urine Protein Urine Glucose (UA) Urine Ketones Urine Occult Blood Urine Nitrite Urine Bilirubin Urine Urobilinogen Ur Leukocyte Esterase Urine RBC Urine WBC Ur Squamous Epith Cells Urine Bacteria Urine Mucus Ur Microscopic Review Urine Culture Comments PD Medical Decision Making - ED course ED course: 37-year-old woman presents with acute migraine headache with nausea and vomiting, resolved status post IV fluids, Toradol, Reglan, Benadryl. Advised outpatient follow-up with primary care provider for referral to neurology. Return precautions given. Departure - Departure Disposition: Home, Self Care Clinical Impression: Headache, Vomiting Condition: Stable Instructions: ED Headache Migraine Comments: You were seen in the emergency department for Headache and vomiting. Your blood pressure was elevated in the emergency department and you should have it rechecked with your primary care provider. Please follow-up with your primary care provider and return to the emergency department if you have any new or worsening symptoms or other concerns. Forms: PCP List
[2023-04-03 01:33] LABS: BACTERIA,URINE Few /HPF (None Seen); MUCUS,URINE Moderate Strands; RBC,URINE 0-5 /HPF (0-5); SQUAMOUS EPITHELIAL CELL,UR MOD Squamous (<= Few)
[2023-04-03 01:42] LABS: ALBUMIN 4.5 g/dL (3.2-5.5); ALBUMIN/GLOBULIN RATIO 1.5 (1.0-2.2); BILIRUBIN,TOTAL 0.4 mg/dL (0.2-1.0); CALCIUM 9.3 mg/dL (8.5-10.3); CREATININE 0.7 mg/dL (0.6-1.3); POTASSIUM 4.3 mmol/L (3.5-4.5); TOTAL PROTEIN 7.6 g/dL (6.4-8.9)
[2023-04-03 02:35] VITALS: BP 146/96
== END 2023-04-03 02:33 | disposition home or self-care (01) ==
LOC: ED 01:07
DX: G43.909 Migraine, unspecified, not intractable, without status migrainosus (principal); I10 Essential (primary) hypertension; F17.200 Nicotine dependence, unspecified, uncomplicated
CPT/HCPCS: 36415; 80053; 81001; 83690; 84702; 85025; 96374; 96375; 99283; J1200; J2765; 81003; 87086

== ENCOUNTER 2023-06-08 07:45 | Outpatient (CLI) | payer MEDICARE, MEDICAID ==
[2023-06-08 12:39] LABS: BASOPHILS # (AUTO) 0.1 10^3/uL (0.0-0.1); BASOPHILS % (AUTO) 1.1 %; EOSINOPHILS # (AUTO) 0.5 10^3/uL (0.0-0.7); EOSINOPHILS % (AUTO) 5.1 %; HCT - HEMATOCRIT 39.1 % (37.0-47.0); HGB - HEMOGLOBIN 12.5 g/dL (12.0-16.0); LYMPHOCYTES # (AUTO) 3.4 10^3/uL (1.5-3.5); LYMPHOCYTES % (AUTO) 34.1 %; MEAN CORPUSCULAR HEMOGLOBIN 27.5 pg (27.0-31.0); MEAN CORPUSCULAR VOLUME 86.1 fL (81.0-99.0); MEAN PLATELET VOLUME 11.5 fL (7.9-10.8); MONOCYTES # (AUTO) 0.6 10^3/uL (0.0-1.0); NEUTROPHILS # (AUTO) 5.3 10^3/uL (1.5-6.6); NEUTROPHILS % (AUTO) 53.6 %; PLT - PLATELET COUNT 404 10^3/uL (130-450); RED BLOOD COUNT 4.54 10^6/uL (4.20-5.40); RED CELL DISTRIBUTION WIDTH 13.7 % (12.0-15.0); WHITE BLOOD COUNT 9.9 x10^3/uL (4.8-10.8)
[2023-06-08 13:02] LABS: ESTIMATED AVERAGE GLUCOSE 105 mg/dL (70-100); HEMOGLOBIN A1c% 5.3 % (4.27-6.07)
[2023-06-08 13:06] LABS: % IRON SATURATION 10 % (20-50); ALBUMIN 4.2 g/dL (3.2-5.5); ALBUMIN/GLOBULIN RATIO 1.4 (1.0-2.2); ALKALINE PHOSPHATASE 62 IU/L (42-121); ALT ALANINE AMINOTRANSFERASE 11 IU/L (10-60); AST ASPARTATE AMINOTRANSFERASE 11 IU/L (10-42); BILIRUBIN,TOTAL 0.2 mg/dL (0.2-1.0); BUN - BLOOD UREA NITROGEN 14 mg/dL (6-20); CALCIUM 9.8 mg/dL (8.5-10.3); CARBON DIOXIDE - CO2 28 mmol/L (21-32); CHLORIDE 100 mmol/L (101-111); CHOL/HDL RATIO 4.9 (<4.4); CHOLESTEROL 214 mg/dL; CREATININE 0.8 mg/dL (0.6-1.3); GFR - MDRD 82 (>89); GLUCOSE 110 mg/dL (74-104); HDL CHOLESTEROL 44 mg/dL; IRON 48 ug/dL (50-212); POTASSIUM 3.6 mmol/L (3.5-4.5); SODIUM 137 mmol/L (135-145); TOTAL IRON BINDING CAPACITY 482 ug/dL (250-450); TOTAL PROTEIN 7.1 g/dL (6.4-8.9); TRANSFERRIN 344 mg/dL (203-362); TRIGLYCERIDES 498 mg/dL (48-352)
[2023-06-08 13:07] LABS: THYROID STIMULATING HORMONE 9.83 uIU/mL (0.34-5.60)
[2023-06-08 13:10] LABS: FERRITIN 7.4 ng/mL (11.0-306.8)
[2023-06-08 13:24] LABS: LDL CHOLESTEROL,DIRECT 131 mg/dL (75-193)
== END 2023-06-08 07:46 | disposition home or self-care (01) ==
LOC: LAB.N 07:45
PROVIDERS: ATTEND Nurse Practitioner Family
DX: E78.5 Hyperlipidemia, unspecified (principal); D50.9 Iron deficiency anemia, unspecified; E03.9 Hypothyroidism, unspecified; E11.9 Type 2 diabetes mellitus without complications
CPT/HCPCS: 36415; 80053; 80061; 82728; 83036; 83540; 83721; 84439; 84443; 84466; 85025

== ENCOUNTER 2023-12-08 07:43 | Outpatient (CLI) | payer MEDICARE, MEDICAID ==
[2023-12-08 12:33] LABS: BASOPHILS # (AUTO) 0.1 10^3/uL (0.0-0.1); BASOPHILS % (AUTO) 1.3 %; EOSINOPHILS # (AUTO) 0.3 10^3/uL (0.0-0.7); HCT - HEMATOCRIT 39.8 % (37.0-47.0); HGB - HEMOGLOBIN 12.4 g/dL (12.0-16.0); LYMPHOCYTES # (AUTO) 2.9 10^3/uL (1.5-3.5); LYMPHOCYTES % (AUTO) 32.7 %; MEAN CORPUSCULAR HEMOGLOBIN 27.9 pg (27.0-31.0); MEAN CORPUSCULAR HGB CONC 31.2 g/dL (32.0-36.0); MEAN CORPUSCULAR VOLUME 89.4 fL (81.0-99.0); MEAN PLATELET VOLUME 10.4 fL (7.9-10.8); MONOCYTES # (AUTO) 0.7 10^3/uL (0.0-1.0); MONOCYTES % (AUTO) 7.6 %; NEUTROPHILS # (AUTO) 4.9 10^3/uL (1.5-6.6); NEUTROPHILS % (AUTO) 55.1 %; PLT - PLATELET COUNT 397 10^3/uL (130-450); RED BLOOD COUNT 4.45 10^6/uL (4.20-5.40)
[2023-12-08 13:13] LABS: THYROID STIMULATING HORMONE 8.16 uIU/mL (0.34-5.60)
== END 2023-12-08 07:44 | disposition home or self-care (01) ==
LOC: LAB.N 07:43
PROVIDERS: ATTEND Nurse Practitioner Family
DX: E03.9 Hypothyroidism, unspecified (principal); D50.9 Iron deficiency anemia, unspecified
CPT/HCPCS: 36415; 82728; 83540; 84439; 84443; 84466; 85025